=== PATIENT | female | born 1985 | race Caucasian/White ===

== ENCOUNTER 2016-11-11 19:52 | Emergency (ER) | payer MEDICAID ==
[~2016-11-11] VITALS: Wt 53.0 kg
[2016-11-11] MEDS ORDERED: KETOROLAC 30 MG INJ IV STA (20:37)
[2016-11-11 20:56] LABS: URINE BLOOD (Dip) POC 2+ (NEGATIVE)
[2016-11-11 21:05] LABS: ADD SCAN DIFF NO
[2016-11-11 21:07] LABS: BASOPHILS % 0.3 % (0.0-2.0); EOSINOPHILS # 0.3 10^3/ul (0.0-0.5); EOSINOPHILS % 2.4 % (0.0-7.0); HEMATOCRIT 37.9 % (37.0-47.0); LYMPHOCYTES # 2.8 10^3/ul (0.8-2.9); LYMPHOCYTES % 22.8 % (15.0-51.0); MEAN CORPUSCULAR HGB CONC 31.7 g/dl (32.0-37.0); MEAN CORPUSCULAR VOLUME 94.8 fl (82.0-101.0); MEAN PLATELET VOLUME 8.5 fl (7.4-10.4); MONOCYTE # 0.9 10^3/ul (0.3-0.9); MONOCYTES % 7.1 % (0.0-11.0); NEUTROPHIL # 8.1 10^3/ul (1.6-7.5); NEUTROPHILS % 67.1 % (39.0-77.0); PLATELET COUNT 358 10^3/UL (140-415); WHITE BLOOD COUNT 12.1 10^3/ul (4.8-10.8)
--- NOTE | 2016-11-11 21:28 | RADRPT ---
PROCEDURE: Right upper quadrant abdominal ultrasound. CLINICAL INDICATION: Abdominal pain TECHNIQUE: Garcia scale and color doppler ultrasound images of the right upper quadrant. COMPARISON: None FINDINGS: Pancreas: Visualized portions appear of normal echogenicity, no focal lesions. Liver: Morphology: Normal in size and contour. Echogenicity: Normal. Focal lesions: None. Main portal vein: Patent with hepatopetal flow. Biliary System: Normal appearing gallbladder wall. Shadowing gallstones are present within the gallbladder. No intrahepatic biliary dilatation. Common bile duct measures 2.2 mm in maximal dimension. Kidneys: Right 8.3 cm in length. Right renal cortical thickness is preserved. Normal echogenicity. No hydronephrosis. No renal calculi. No focal lesions. No free fluid identified. IMPRESSION: Cholelithiasis without evidence of abnormal gallbladder wall thickening to suggest cholecystitis. Normal caliber of the intrahepatic and extrahepatic biliary system. RPTAT: AADD .Dylon Winslow MD, MD Date Time Electronically viewed and signed by .Dylon Winslow MD, on 11/11/2016 21:27 .B/
--- NOTE | 2016-11-11 21:45 | ERD ---
ER Documentation Chief Complaint Date/Time DATE: 11/11/16 TIME: 21:42 Chief Complaint AP right lower quadrant x3 days HPI This is a 30-year-old female presenting to the emergency department for right upper quadrant abdominal pain 3 days. Patient states pain has gotten worse over the past 3 days and rates pain 7-10/10. Patient states pain feels sharp and does not radiate. Denies nausea, vomiting or diarrhea. Patient states she has never had this pain before. No fevers or chills. No dysuria, hematuria, urinary frequency or urinary urgency. Patient recently had unprotected sex with multiple partners and states she might have a "herpes outbreak." Patient is requesting medications for this. Patient states she has lesions to genital area that she noticed today. ROS All systems reviewed and are negative except as per history of present illness. Medications Home Meds Active Scripts Hydrocodone/Acetaminophen ([place] 5-325 Tablet) 1 Each Tablet, 1 TAB PO Q6H Y for PAIN, #7 TAB Prov:JH MATSON NP 11/11/16 Ibuprofen* (Motrin*) 400 Mg Tab, 400 MG PO Q6, #15 TAB Prov:JH MATSON NP 11/11/16 Ciprofloxacin Hcl* (Ciprofloxacin Hcl*) 500 Mg Tablet, 500 MG PO BID for 3 Days , TAB Prov:JH MATSON NP 11/11/16 Allergies Allergies: Uncoded Allergies: PENICILLIN (Allergy, Intermediate, Hives, 11/11/16) PMhx/Soc Medical and Surgical Hx: pt denies Medical Hx, pt denies Surgical Hx Hx Alcohol Use: No Hx Substance Use: No Hx Tobacco Use: No Smoking Status: Never smoker Physical Exam Vitals Vital Signs Date Time Temp Pulse Resp B/P Pulse Ox O2 Delivery O2 Flow Rate FiO2 11/12/16 00:12 99 17 138/78 100 Room Air 11/11/16 20:22 99.2 129 20 117/70 98 Physical Exam Const: No acute distress, alert Head: Atraumatic Eyes: Normal Conjunctiva ENT: Normal External Ears, Nose and Mouth. Neck: Full range of motion..~ No meningismus. Resp: Clear to auscultation bilaterally Cardio: Regular rate and rhythm, no murmurs Abd: Soft, non tender, non distended. Normal bowel sounds Skin: No petechiae or rashes Back: No midline or flank tenderness Ext: No cyanosis, or edema Neur: Awake and alert Psych: Normal Mood and Affect : small pustular lesions to pubic area near vulva. no vesicles. no discharge. Result Diagram: 11/11/16 2100 11/11/16 215 Results 24 hrs Laboratory Tests Test 11/11/16 21:00 11/11/16 21:51 White Blood Count 12.110^3/ul Red Blood Count 4.0010^6/ul Hemoglobin 12.0g/dl Hematocrit 37.9% Mean Corpuscular Volume 94.8fl Mean Corpuscular Hemoglobin 30.0pg Mean Corpuscular Hemoglobin Concent 31.7g/dl Red Cell Distribution Width 14.0% Platelet Count 04597^3/UL Mean Platelet Volume 8.5fl Neutrophils % 67.1% Lymphocytes % 22.8% Monocytes % 7.1% Eosinophils % 2.4% Basophils % 0.3% Nucleated Red Blood Cells % 0.0/100WBC Neutrophils # 8.110^3/ul Lymphocytes # 2.810^3/ul Monocytes # 0.910^3/ul Eosinophils # 0.310^3/ul Basophils # 0.010^3/ul Nucleated Red Blood Cells # 0.010^3/ul Bedside Urine pH (LAB) 6.0 Bedside Urine Protein (LAB) 2+ Bedside Urine Glucose (UA) Negative Bedside Urine Ketones (LAB) Trace Bedside Urine Blood 2+ Bedside Urine Nitrite (LAB) Negative Bedside Urine Leukocyte Esterase (L 1+ Sodium Level 146mmol/L Potassium Level 4.4mmol/L Chloride Level 106mmol/L Carbon Dioxide Level 30mmol/L Anion Gap 14 Blood Urea Nitrogen 11mg/dl Creatinine 1.14mg/dl Glucose Level 83mg/dl Calcium Level 9.0mg/dl Total Bilirubin 0.0mg/dl Direct Bilirubin 0.00mg/dl Indirect Bilirubin 0.0mg/dl Aspartate Amino Transf (AST/SGOT) 19IU/L Alanine Aminotransferase (ALT/SGPT) 28IU/L Alkaline Phosphatase 65IU/L Total Protein 6.9g/dl Albumin 3.9g/dl Globulin 3.00g/dl Albumin/Globulin Ratio 1.30 Lipase 120U/L Current Medications Medications (Trade) Dose Ordered Sig/Thais Route PRN Reason Start Time Stop Time Status Last Admin Dose Admin Ketorolac Tromethamine (Toradol) 30 mg ONCE STAT IV 11/11/16 20:37 11/11/16 20:40 DC 11/11/16 21:02 Ceftriaxone Sodium (Rocephin) 250 mg ONCE ONCE IM 11/12/16 00:00 11/12/16 00:08 DC Azithromycin (Zithromax) 1,000 mg ONCE ONCE PO 11/12/16 00:00 11/12/16 00:08 DC Procedures/[place] [id number] Radiology Main Line: [phone] DIAGNOSTIC IMAGING REPORT Patient: LALA VALDERRAMA : 1985 Age: 30 Sex: F MR #: [id number] DOS: 11/11/162036 Ordering MD: JH MATSON NP Location: [facility] Room/Bed: PROCEDURE: Right upper quadrant abdominal ultrasound. CLINICAL INDICATION: Abdominal pain TECHNIQUE: Garcia scale and color doppler ultrasound images of the right upper quadrant. COMPARISON: None FINDINGS: Pancreas: Visualized portions appear of normal echogenicity, no focal lesions. Liver: Morphology: Normal in size and contour. Echogenicity: Normal. Focal lesions: None. Main portal vein: Patent with hepatopetal flow. Biliary System: Normal appearing gallbladder wall. Shadowing gallstones are present within the gallbladder. No intrahepatic biliary dilatation. Common bile duct measures 2.2 mm in maximal dimension. Kidneys: Right 8.3 cm in length. Right renal cortical thickness is preserved. Normal echogenicity. No hydronephrosis. No renal calculi. No focal lesions. No free fluid identified. IMPRESSION: Cholelithiasis without evidence of abnormal gallbladder wall thickening to suggest cholecystitis. Normal caliber of the intrahepatic and extrahepatic biliary system. MDM: 30-year-old female presents emergency department for right upper quadrant abdominal pain 3 days. Patient states pain is getting worse. Patient states pain feels sharp and stabbing to right upper quadrant. Patient is never had this pain before. Labs and urine were ordered. Patient given Toradol on the ED. gallbladder ultrasound reviewed by radiologist as cholelithiasis without evidence of abnormal gallbladder wall thickening to suggest cholecystitis. Normal caliber of the intrahepatic and extrahepatic biliary system. Labs are unremarkable. Urine shows possible UTI with 1+ leukocytosis and 2+ blood. Patient has recent unprotected sex with multiple partners and has pustular lesions to suprapubic area. No vesicles. No drainage. Possible gonorrhea or chlamydia. Urine G/C ordered. Patient will be treated prophylactically with Rocephin 25mg IM and Azithromycin 1gm. Patient tolerated procedure well. Remains alert and vitals are stable. Low suspicion for acute surgical abdomen, obstruction, peritonitis, acute cholangitis, acute cholecystitis or pancreatitis. Differential diagnosis includes but not limited cholelithiasis, GERD, UTI, gastritis, peptic ulcer disease or gastroparesis. Patient is appropriate for outpatient management and will be given prescriptions for [place], Ibuprofen and Cipro. Patient instructed to follow up with their PCP in 2-3 days. Patient instructed to return to ED sooner if pain worsens or is intolerable, high fever or new symptoms such as anorexia, not tolerating PO, severe diarrhea or chest pain. Patient verbalizes understanding. Departure Diagnosis: Primary Impression: Cholelithiasis Cholelithiasis location: gallbladder Cholecystitis presence: without cholecystitis Biliary obstruction: without biliary obstruction Qualified Code : K80.20 - Calculus of gallbladder without cholecystitis without obstruction Condition: Stable JH MATSON NP Nov 11, 2016 21:45
[2016-11-11 22:47] LABS: ALBUMIN 3.9 g/dl (3.3-4.9); ALBUMIN/GLOBULIN RATIO 1.3; CREATININE 1.14 mg/dl (0.44-1.00); POTASSIUM 4.4 mmol/L (3.5-5.1); TOTAL PROTEIN 6.9 g/dl (6.1-8.1)
[2016-11-11] MEDS ORDERED: HYDR-906 PO (23:55)
[2016-11-11] MEDS ORDERED: CIPR500T4 PO (23:55)
[2016-11-11] MEDS ORDERED: IBUP400T22 PO (23:55)
[2016-11-12] MEDS ORDERED: CEFTRIAXONE 250 MG INJ IM ONE
[2016-11-12] MEDS ORDERED: AZITHROMYCIN 250 MG TAB PO ONE
[2016-11-12 00:12] VITALS: BP 138/78; PULSE 99; RESP 17
== END 2016-11-12 00:12 | disposition home or self-care (01) ==
LOC: FTE 19:52
DX: K80.20 Calculus of gallbladder without cholecystitis without obstruction (principal)
CPT/HCPCS: 36415; 76705; 80053; 81003; 83690; 85025; 87591; 96374; J1885; Z7502